=== PATIENT | female | born 2000 | race Asian ===

== ENCOUNTER 2023-12-31 08:48 | Outpatient (REF) | payer OTHER, SELFPAY ==
--- NOTE | ~2023-12-31 | US_ITS ---
EXAMINATION: US PELVIS CLINICAL INFORMATION: Worsening menstrual cramps. LMP unknown. COMPARISON: None available. TECHNIQUE: Ultrasound of the pelvis is performed using both transabdominal and transvaginal transducers along with Doppler. Transvaginal imaging is performed due to inadequate visualization transabdominally. FINDINGS: Uterus: The uterus is anteverted. The uterus measures 7.9 x 3.2 x 4.1 cm. The endometrial stripe is thickened and heterogeneous with cystic spaces measuring up to 1.0 cm. No internal color Doppler flow. Adnexa: Small free fluid in the pelvis. Right ovary measures 2.4 x 1.5 x 2.5 cm. Volume 4.7 mL. Left ovary measures 4.6 x 2.4 x 2.6 cm. Volume 14.5 mL. There is a thin-walled tubular structure in the left adnexa measuring 2.2 x 1.2 x 1.3 cm possibly representing a hydrosalpinx. US/US pelvic and transvaginal IMPRESSION: Thickened heterogeneous endometrium with cystic spaces. No internal color Doppler flow. This could represent endometrial hyperplasia. Consultation with gynecology is advised. Possible left hydrosalpinx measuring 2.2 x 1.2 x 1.3 cm.
== END 2023-12-31 08:49 | disposition home or self-care (01) ==
LOC: HO.UMASIMG 08:48
PROVIDERS: Visit Provider Nurse Practitioner Women's Health
DX: E28.2 Polycystic ovarian syndrome (principal)
CPT/HCPCS: 76830; 76856

== ENCOUNTER 2024-06-17 08:28 | Outpatient (REF) | payer OTHER, SELFPAY | END 2024-06-17 08:29 | disposition home or self-care (01) | LOC: HO.UMASIMG 08:28 | PROVIDERS: Visit Provider Emergency Medicine | DX: Z13.89 Encounter for screening for other disorder (principal) ==

== ENCOUNTER 2025-01-24 06:24 | Outpatient (REF) | payer OTHER, SELFPAY ==
--- NOTE | ~2025-01-24 | US_ITS ---
CLINICAL HISTORY: F U abn pelvic ultrasound US pelvis transabdominal and transvaginal Comparison: None Findings: Transabdominal imaging performed for overall anatomy. Transvaginal imaging performed for additional detail. Anteverted uterus measures 6.7 cm in length on transabdominal imaging and 6.6 cm in length on transvaginal imaging. Normal myometrium. Endometrium measures 8.4 mm thickness. Right ovary 4.0 x 2.1 x 1.5 cm. Left ovary 3.0 x 1.7 x 3.2 cm. Flow present at the bilateral ovaries on color Doppler imaging. The right ovary is unremarkable in appearance. Possible vague luteal cyst of the left ovary. A 1.7 x 1.2 x 1.5 cm anechoic cyst with posterior acoustic enhancement is present at the left adnexa, suggesting a paraovarian cyst. No free fluid. IMPRESSION: 1.7 cm simple appearing left paraovarian cyst with a possible vague luteal cyst of the left ovary. Otherwise unremarkable sonographic evaluation of the pelvis. This document has been electronically signed by: Keegan Sales MD on 01/25/2025 00:04:37
== END 2025-01-24 06:25 | disposition home or self-care (01) ==
LOC: HO.UMASIMG 06:24
PROVIDERS: Visit Provider Family Medicine
DX: R93.89 Abnormal findings on diagnostic imaging of other specified body structures (principal); F50.9 Eating disorder, unspecified
CPT/HCPCS: 76830; 76856

== ENCOUNTER → 2025-01-24 10:00 | Outpatient (BNV) | payer OTHER, SELFPAY | PROVIDERS: Visit Provider Radiology Diagnostic Radiology | DX: N83.202 Unspecified ovarian cyst, left side (principal) | CPT/HCPCS: 76830; 76856 ==